=== PATIENT | male | born 2000 | race Caucasian/White ===

== ENCOUNTER 2021-02-16 18:18 | Emergency (ER) | payer OTHER ==
[~2021-02-16] VITALS: Ht 180.3 cm; Wt 93.6 kg
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
[2021-02-16] MEDS ORDERED: IBUPROFEN 800 MG TAB PO ONE (21:30)
--- OUTSIDE RECORDS SUMMARY | 2021-02-16 21:46 | CCD ---
Author [facility] Address Unknown Phone Unavailable Support Name Relationship Address Phone [facility] Next Of Kin [address] [place] [address] Unavailable Re-disclosure Warning The records that you are about to access may contain information from federally-assisted alcohol or drug abuse programs. If such information is present, then the following federally mandated warning applies: This information has been disclosed to you from records protected by federal confidentiality rules (42 CFR part 2). The federal rules prohibit you from making any further disclosure of this information unless further disclosure is expressly permitted by the written consent of the person to whom it pertains or as otherwise permitted by 42 CFR part 2. A general authorization for the release of medical or other information is NOT sufficient for this purpose. The Federal rules restrict any use of the information to criminally investigate or prosecute any alcohol or drug abuse patient.The records that you are about to access may contain highly sensitive health information, the redisclosure of which is protected by Article 27-F of the [facility] Public Health law. If you continue you may have access to information: Regarding HIV / AIDS; Provided by facilities licensed or operated by the [facility] Office of Mental Health; or Provided by the [facility] Office for People With Developmental Disabilities. If such information is present, then the following [facility] mandated warning applies: This information has been disclosed to you from confidential records which are protected by state law. State law prohibits you from making any further disclosure of this information without the specific written consent of the person to whom it pertains, or as otherwise permitted by law. Any unauthorized further disclosure in violation of state law may result in a fine or skilled nursing sentence or both. A general authorization for the release of medical or other information is NOT sufficient authorization for further disc losure. Medications No Information Insurance Providers Payer name Policy type / Coverage type Policy ID Covered constitution party ID Covered constitution party's relationship to longo Policy [employer] Plan Information [facility] [employer] [id number] Problems, Conditions, and Diagnoses No Information Surgeries/Procedures No Information Results No Information Social History No Information
[2021-02-16 22:48] LABS: AMPHETAMINES LEVEL URINE NEGATIVE (NEGATIVE); BARBITURATES URINE NEGATIVE (NEGATIVE); BENZODIAZEPINES URINE NEGATIVE (NEGATIVE); CANNABINOIDS URINE NEGATIVE (NEGATIVE); COCAINE METABOLITE URINE NEGATIVE (NEGATIVE); METHADONE URINE NEGATIVE (NEGATIVE); OPIATES URINE NEGATIVE (NEGATIVE); PHENCYCLIDINE URINE NEGATIVE (NEGATIVE)
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
[2021-02-16 23:19] LABS: BASO # 0.1 10^3/uL (0.0-0.2); BASO % 0.4 % (0.0-1.0); EOS # 0.2 10^3/uL (0.0-0.5); EOS % 1.8 % (0.0-3.0); HEMATOCRIT 41.8 % (42.0-52.0); HEMOGLOBIN 14.1 g/dl (13.5-17.5); LYMPH # 3.2 10^3/uL (1.5-5.0); LYMPH % 25.8 % (24.0-44.0); MEAN CORPUSCULAR HEMOGLOBIN 28.1 pg (27.0-33.0); MEAN CORPUSCULAR HGB CONC 33.7 g/dl (32.0-36.5); MEAN CORPUSCULAR VOLUME 83.4 fl (80.0-96.0); MONO # 0.8 10^3/uL (0.0-0.8); MONO % 6.4 % (2.0-8.0); NEUTROPHILS % 65.3 % (36.0-66.0); PLATELET COUNT, AUTOMATED 277 10^3/uL (150-450); RED BLOOD COUNT 5.01 10^6/uL (4.30-6.10); WHITE BLOOD COUNT 12.3 10^3/uL (4.0-10.0)
[2021-02-16 23:58] LABS: BLOOD UREA NITROGEN 6 MG/DL (7-18); CALCIUM LEVEL 9.4 MG/DL (8.5-10.1); CARBON DIOXIDE LEVEL 22 MEQ/L (21-32); CHLORIDE LEVEL 108 MEQ/L (98-107); CPK CREATINE PHOSPHOKINASE 308 U/L (39-308); CREATININE FOR GFR 0.86 MG/DL (0.70-1.30); ETHYL ALCOHOL (ETHANOL) < 0.003 % (0.000-0.010); FREE T4 1.05 NG/DL (0.76-1.46); GLOMERULAR FILTRATION RATE > 60.0 (>60); GLUCOSE, FASTING 82 MG/DL (70-100); MAGNESIUM LEVEL 2.1 MG/DL (1.8-2.4); MB/CK RELATIVE INDEX 0.97 (< OR =4); POTASSIUM SERUM 3.9 MEQ/L (3.5-5.1); SODIUM LEVEL 141 MEQ/L (136-145); TROPONIN I < 0.02 NG/ML (< 0.10)
[2021-02-17 00:55] VITALS: BP 121/60
--- NOTE | 2021-02-17 06:54 | ECGEPIP ---
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
== END 2021-02-17 00:57 | disposition home or self-care (01) ==
LOC: M ED 18:18
DX: M54.6 Pain in thoracic spine (principal); R55 Syncope and collapse; V49.49XA Driver injured in collision with other motor vehicles in traffic accident, initial encounter; Y92.410 Unspecified street and highway as the place of occurrence of the external cause; I10 Essential (primary) hypertension; Z77.098 Contact with and (suspected) exposure to other hazardous, chiefly nonmedicinal, chemicals